=== PATIENT | female | born 1955 | race Caucasian/White ===

== ENCOUNTER 2016-04-30 18:25 | Emergency (ER) | payer OTHER ==
[~2016-04-30] VITALS: Ht 160 cm; Wt 70.3 kg
[~2016-04-30 18:25] MED LIST: ABILIFY10 MG PO; ABILIFY30 MG PO; AMLODIPINE BESYL5 MG PO; ARIPIPRAZOLE30 MG PO; ASPIRIN325 MG PO; ASPIRIN81 M2 PO; ATARAX,VISTARIL50 MG PO; ATORVASTATIN CA40 MG PO; CELEXA40 MG PO; CHLORDIAZEPOXID25 MG PO; CITALOPRAM HBR40 MG PO; EFFEXOR75 MG PO; HUMALOG100 UNIT/2 SC; HYDROXYZINE HCL50 MG PO; LEVEMIR FL100 UNIT/1 SC; LEVEMIR100 UNIT/2 SC; LO-DOSE ASPIRIN81 M1 PO; NORCO 5/3251 TABLET PO; NOVOLOG PE100 UNITS/ SC; THIAMINE HCL100 MG PO; TRAZODONE HCL100 MG PO; ZOFRAN4 MG PO
[2016-04-30 19:13] LABS: HEMATOCRIT 40.7 % (36.0-46.0); MCHC 34.6 G/DL (30.0-36.0); MCV 92.3 FL (83-99); MEAN PLAT.VOLUME 10.2 uM^3 (9.5-12.4); PLATELET COUNT 253 K/uL (156-360); RBC DIS.WIDTH-CV 12.7 % (11.8-14.6); RBC DIS.WIDTH-SD 41.6 % (39-53); RED BLOOD COUNT 4.41 M/uL (3.80-5.20); WHITE BLOOD COUNT 8.8 K/uL (4.1-10.2)
[2016-04-30 19:22] LABS: CHLORIDE 95 mEq/L (99-109); POTASSIUM 4.3 mEq/L (3.7-5.4); SODIUM 137 mEq/L (136-147)
[2016-04-30 19:24] LABS: GLUCOSE 351 mg/dL (70-99)
[2016-04-30 19:25] LABS: ANION GAP 23 MEQ/L (2-14)
[2016-04-30 19:26] LABS: TOTAL BILIRUBIN 0.4 mg/dL (0.0-1.0)
[2016-04-30 19:28] LABS: ALKALINE PHOSPHATASE 132 IU/L (3-129); GFR ESTIMATE (CALCULATED) 54 mL/min/
[2016-04-30 19:29] LABS: UREA NITROGEN (BUN) 15 mg/dL (9-23)
[2016-04-30 19:31] LABS: LIPASE 8 U/L (1.0-51.0)
[2016-04-30 19:36] LABS: POINT-OF-CARE METER ID UU13113778
[2016-04-30 21:07] LABS: SERUM ETHYL ALCOHOL 97 mg/dL
[2016-04-30 21:15] LABS: ADD MIUA? NO; BILIRUBIN NEGATIVE; BLOOD NEGATIVE; GLUCOSE (STRIP) >=1000; KETONES TRACE; LEUKOCYTES NEGATIVE; NITRITE NEGATIVE; PROTEIN (STRIP) NEGATIVE; UCUL ADDED? NO; UROBILINOGEN 0.2 MG/DL (0.2-1.0)
[2016-04-30 21:16] LABS: COLOR PALE STRAW ((YELLOW))
[2016-04-30] MEDS ORDERED: ZOFRAN4 MG PO (22:49)
[2016-04-30] MEDS ORDERED: ULTRAM50 MG PO (22:50)
[2016-04-30 23:30] VITALS: BP 143/95
== END 2016-04-30 23:38 | disposition home or self-care (01) ==
LOC: EME 18:25
DX: R10.30 Lower abdominal pain, unspecified (principal); F10.239 Alcohol dependence with withdrawal, unspecified; G89.29 Other chronic pain; E11.9 Type 2 diabetes mellitus without complications; E78.5 Hyperlipidemia, unspecified; Z86.73 Personal history of transient ischemic attack (TIA), and cerebral infarction without residual deficits; Z79.4 Long term (current) use of insulin; Z79.82 Long term (current) use of aspirin
CPT/HCPCS: 74176; 80053; 81003; 82948; 83690; 85027; 93005; 99281; 99285; G0480; J2060; J7030

== ENCOUNTER → 2016-08-09 | Outpatient (CLI) | payer OTHER ==
[~2016-08-09] VITALS: Ht 160 cm; Wt 68.2 kg
[~2016-08-09] MED LIST changes: +NOVOLOG 10100 UNITS/ SC; +ULTRAM50 MG PO
[2016-08-09 10:03] LABS: POINT-OF-CARE METER ID UU13113694; POINT-OF-CARE USER ID AHSRSCSLC11
[2016-08-09 11:14] LABS: POINT-OF-CARE METER ID UU13113694
== END | disposition home or self-care (01) ==
LOC: AMB 06-28 10:00 → OPR 06-28 11:30 → AMB 09:27
PROVIDERS: Internal Medicine
PROC: 0DBE8ZX Excision of Large Intestine, Via Natural or Artificial Opening Endoscopic, Diagnostic (ICD-10-PCS; principal; 2016-08-09)
DX: R19.7 Diarrhea, unspecified (principal); K64.8 Other hemorrhoids; E11.65 Type 2 diabetes mellitus with hyperglycemia; Z79.4 Long term (current) use of insulin; E78.5 Hyperlipidemia, unspecified; F10.21 Alcohol dependence, in remission; Z79.82 Long term (current) use of aspirin
CPT/HCPCS: 82948; 88305; J2250; J3010

== ENCOUNTER 2016-12-15 11:08 | Emergency (ER) | payer OTHER ==
[~2016-12-15] VITALS: Ht 160 cm; Wt 68.0 kg
[2016-12-15] MEDS ORDERED: LIBRIUM25 MG PO (13:23)
[2016-12-15 14:20] VITALS: BP 142/78
== END 2016-12-15 14:23 | disposition home or self-care (01) ==
LOC: EME 11:08
DX: F10.239 Alcohol dependence with withdrawal, unspecified (principal); I10 Essential (primary) hypertension; E11.9 Type 2 diabetes mellitus without complications; Z79.4 Long term (current) use of insulin
CPT/HCPCS: 99281; 99284; J2060

== ENCOUNTER 2016-12-25 09:02 | Inpatient (IN) | payer OTHER ==
[~2016-12-25] VITALS: Ht 160 cm; Wt 71.0 kg
[~2016-12-25 09:02] MED LIST changes: +LIBRIUM25 MG PO
[2016-12-25 09:21] LABS: POINT-OF-CARE METER ID UU13113747
[2016-12-25 10:36] LABS: HEMATOCRIT 38.3 % (36.0-46.0); MCH 31.5 PG (29.0-34.0); MCHC 32.1 G/DL (30.0-36.0); PLATELET COUNT 195 K/uL (156-360); RBC DIS.WIDTH-CV 12.9 % (11.8-14.6); RBC DIS.WIDTH-SD 45.5 % (39-53); RED BLOOD COUNT 3.91 M/uL (3.80-5.20); WHITE BLOOD COUNT 8.1 K/uL (4.1-10.2)
[2016-12-25 10:48] LABS: CHLORIDE 99 mEq/L (99-109); POTASSIUM 4.3 mEq/L (3.7-5.4); SODIUM 136 mEq/L (136-147)
[2016-12-25 10:51] LABS: ANION GAP 15 MEQ/L (2-14)
[2016-12-25 10:53] LABS: GFR ESTIMATE (CALCULATED) 45 mL/min/; SERUM ETHYL ALCOHOL < 10 mg/dL
[2016-12-25 10:54] LABS: UREA NITROGEN (BUN) 22 mg/dL (9-23)
[2016-12-25 11:08] LABS: GLUCOSE 491 mg/dL (70-99)
[2016-12-25 12:03] LABS: ADD MIUA? YES; BILIRUBIN NEGATIVE; BLOOD NEGATIVE; COLOR YELLOW ((YELLOW)); GLUCOSE (STRIP) >=500; KETONES 5; LEUKOCYTES MODERATE; NITRITE NEGATIVE; PROTEIN (STRIP) NEGATIVE; SPECIFIC GRAVITY 1.025 (1.000-1.030); UROBILINOGEN 0.2 MG/DL (0.2-1.0)
[2016-12-25 12:09] LABS: BACTERIA RARE /HPF; EPITHELIAL CELLS RARE /HPF; MUCUS TRACE /LPF; RED BLOOD CELLS 0-5 /HPF (0-5); UCUL ADDED? YES; WHITE BLOOD CELLS 15-20 /HPF (0-5)
[2016-12-25 13:23] LABS: POINT-OF-CARE METER ID UU13113747
[2016-12-25] MEDS ORDERED: ENDOCET 5-3251 EACH PO (14:14)
[2016-12-25] MEDS ORDERED: LIBRIUM25 MG PO (14:15)
[2016-12-25] MEDS ORDERED: METFORMIN HCL500 M4 PO (14:17)
[2016-12-25] MEDS ORDERED: HUMALOG MI100 UNIT/1 SC (14:26)
[2016-12-25] MEDS ORDERED: BUSPAR15 MG PO (14:27)
[2016-12-25] MEDS ORDERED: LIPITOR40 MG PO (14:27)
[2016-12-25] MEDS ORDERED: TRAMADOL HCL50 MG PO (14:28)
[2016-12-25] MEDS ORDERED: ONE DAILY1 EAC3 PO (14:29)
[2016-12-25 17:09] LABS: POINT-OF-CARE METER ID UU13113747
[2016-12-25 18:08] VITALS: BP 139/73
[2016-12-25 20:07] VITALS: BP 128/96
[2016-12-25 20:44] LABS: ALKALINE PHOSPHATASE 62 IU/L (3-129); ANION GAP 10 MEQ/L (2-14); CHLORIDE 102 MEQ/L (99-109); GFR ESTIMATE (CALCULATED) 54 mL/min/; GLUCOSE 312 mg/dL (70-99); POTASSIUM 3.9 MEQ/L (3.7-5.4); SAMPLE HEMOLYSIS CHECK 0; SAMPLE ICTERIC CHECK 0; SAMPLE LIPEMIA CHECK 0; SODIUM 138 MEQ/L (136-147); TOTAL BILIRUBIN 0.5 MG/DL (0.0-1.0); UREA NITROGEN (BUN) 20 mg/dL (9-23)
[2016-12-25 21:29] LABS: POINT-OF-CARE METER ID UU14188625
[2016-12-26 00:13] VITALS: BP 135/82
[2016-12-26 04:59] VITALS: BP 130/75
[2016-12-26 07:54] VITALS: BP 145/76
[2016-12-26 12:07] VITALS: BP 142/75
[2016-12-26 12:12] LABS: POINT-OF-CARE METER ID UU13113717
[2016-12-26 16:10] LABS: POINT-OF-CARE METER ID UU13113717
[2016-12-26 16:16] VITALS: BP 155/95
[2016-12-26 21:01] VITALS: BP 150/92
[2016-12-26 21:42] LABS: POINT-OF-CARE METER ID UU13113717
[2016-12-27 00:40] VITALS: BP 152/92
[2016-12-27 04:27] VITALS: BP 141/67
[2016-12-27 07:57] VITALS: BP 169/98
[2016-12-27 11:48] LABS: POINT-OF-CARE METER ID UU13113717
[2016-12-27 11:52] VITALS: BP 176/93
[2016-12-27 16:00] VITALS: BP 154/83
[2016-12-27 20:05] VITALS: BP 157/97
[2016-12-28 00:22] VITALS: BP 143/69
[2016-12-28 04:10] LABS: POINT-OF-CARE METER ID UU13113717
[2016-12-28 07:31] VITALS: BP 163/83
[2016-12-28 11:13] VITALS: BP 167/89
[2016-12-28 15:22] VITALS: BP 152/77
[2016-12-28 19:52] VITALS: BP 138/87
[2016-12-28 20:23] LABS: POINT-OF-CARE METER ID UU13113717
[2016-12-28 23:24] LABS: POINT-OF-CARE METER ID UU13113717; POINT-OF-CARE USER ID BHSKTD
[2016-12-29] VITALS (7 sets, daily range): BP systolic 135–166; BP diastolic 76–98
[2016-12-29 20:13] LABS: POINT-OF-CARE METER ID UU13113717
[2016-12-30 04:26] VITALS: BP 133/88
[2016-12-30 08:05] VITALS: BP 159/90
[2016-12-30 08:07] LABS: POINT-OF-CARE METER ID UU13113717
[2016-12-30 11:40] VITALS: BP 154/85
[2016-12-30 15:29] VITALS: BP 143/85
[2016-12-30] MEDS ORDERED: LIBRIUM25 MG PO (15:45)
[2016-12-30] MEDS ORDERED: FOLIC ACID1 MG PO (15:48)
[2016-12-30] MEDS ORDERED: ASPIRIN325 MG PO (15:55)
[2016-12-30 16:47] LABS: POINT-OF-CARE METER ID UU13113717
[2016-12-30] MEDS ORDERED: CELEXA20 MG PO (16:55)
[2016-12-30] MEDS ORDERED: EFFEXOR XR37.5 MG PO (16:55)
[2016-12-30] MEDS ORDERED: NOVOLOG PE100 UNITS/ SC (17:06)
[2016-12-30] MEDS ORDERED: NOVOLIN N100 UNITS/ SC (17:06)
[2016-12-30 18:28] VITALS: BP 143/85
== END 2016-12-30 19:38 | DRG 918 ==
LOC: EME 09:02 → EDOF 14:13 → 5SOUTH 14:13 → ENRESERV 14:17 → CANRESERV 15:25 → ENRESERV 15:34 → 5SOUTH 17:33
PROVIDERS: Emergency Medicine; Hospitalist; Internal Medicine
PROC: HZ2ZZZZ Detoxification Services for Substance Abuse Treatment (ICD-10-PCS; principal; 2016-12-26)
DX: T42.4X1A Poisoning by benzodiazepines, accidental (unintentional), initial encounter (principal); R09.02 Hypoxemia; F10.239 Alcohol dependence with withdrawal, unspecified; S82.441A Displaced spiral fracture of shaft of right fibula, initial encounter for closed fracture; W19.XXXA Unspecified fall, initial encounter; Y92.009 Unspecified place in unspecified non-institutional (private) residence as the place of occurrence of the external cause; M25.562 Pain in left knee; F32.9 Major depressive disorder, single episode, unspecified; F41.9 Anxiety disorder, unspecified; E78.5 Hyperlipidemia, unspecified; I10 Essential (primary) hypertension; E11.65 Type 2 diabetes mellitus with hyperglycemia; Z86.73 Personal history of transient ischemic attack (TIA), and cerebral infarction without residual deficits; Z79.4 Long term (current) use of insulin
CPT/HCPCS: 71020; 73564; 73610; 80048; 80053; 81003; 82948; 83735; 85027; 87086; 94799; 99281; 99285; G0480; J1650; J1815; J1885; J3411; J7030; J7050